=== PATIENT | female | born 1950 | race Caucasian/White ===

== ENCOUNTER → 2016-11-15 | Outpatient (CLI) | payer BC ==
--- NOTE | 2016-11-17 09:04 | XR ---
EXAM TYPE: LUMBAR SPINE X RAY SERIES COMPARISON: NONE HISTORY: Sciatica TECHNIQUE: 4 views are submitted. FINDINGS: Alignment is anatomic. The pedicles are intact. The transverse processes are intact. There is no s pondylolysis or spondylolisthesis. Diffuse osteopenia noted. Facet arthropathy L5-S1. Hypertrophic c hanges are seen. Moderate multilevel degenerative disc disease. IMPRESSION: 1. Multilevel moderate degenerative disc disease.
== END | disposition home or self-care (01) ==
LOC: RADXRYALE 14:56
PROVIDERS: ATTEND Internal Medicine
DX: M51.36 Other intervertebral disc degeneration, lumbar region (principal)
CPT/HCPCS: 72110

== ENCOUNTER → 2017-02-24 | Outpatient (CLI) | payer BC ==
--- NOTE | 2017-02-25 07:43 | ECHOF ---
Referral Reason:R06.02 SOB MEASUREMENTS -------- HEIGHT: 160.0 cm WEIGHT: 81.6 kg BP: 143/63 RVIDd: 2.8 cm (< 3.3) IVSd: 1.3 cm (0.6 - 1.1) LVIDd: 5.3 cm (3.9 - 5.3) LVPWd: 1.2 cm (0.6 - 1.1) IVSs: 1.7 cm LVIDs: 3.6 cm LVPWs: 1.6 cm LAESV Index (A-L): 17.48 ml/m Ao Diam: 3.7 cm (2.0 - 3.7) AV Cusp: 1.9 cm (1.5 - 2.6) LA Diam: 3.1 cm (2.7 - 3.8) MV EXCURSION: 20.499 mm (> 18.000) MV EF SLOPE: 117 mm/s (70 - 150) EPSS: 1.3 cm MV E Jerrod: 0.63 m/s MV DecT: 229 ms MV A Jerrod: 1.06 m/s MV E/A Ratio: 0.59 RAP: 5.00 mmHg RVSP: 26.85 mmHg FINDINGS -------- Sinus rhythm. This was a technically adequate study. There is mild concentric left ventricular hypertrophy. Overall left ventricular systolic function is normal with, an EF between 55 - 60 %. The right ventricle is normal in size and function. Normal LA size by volume 22+/-6 ml/m2. The right atrium is normal in size. Aortic valve is trileaflet and is mildly thickened. There is no evidence of aortic regurgitation. There is no evidence of aortic stenosis. Mild mitral annular calcification present. There is trace to mild mitral regurgitation. Trace tricuspid regurgitation present. There is no evidence of pulmonary hypertension. The right ventricular systolic pressure, as measured by Doppler, is 26.85mmHg. The pulmonic valve was not well visualized. The aortic root size is normal. Normal inferior vena cava with normal inspiratory collapse consistent with estimated right atrial pressure of 5 mmHg. The pericardium is normal. There is no pericardial effusion. CONCLUSIONS -------- 1. Sinus rhythm. 2. The right ventricular systolic pressure, as measured by Doppler, is 26.85mmHg. 3. The pulmonic valve was not well visualized. 4. The aortic root size is normal. 5. There is no pericardial effusion. 6. There is mild concentric left ventricular hypertrophy. 7. Overall left ventricular systolic function is normal with, an EF between 55 - 60 %. 8. Normal LA size by volume 22+/-6 ml/m2. 9. Aortic valve is trileaflet and is mildly thickened. 10. Mild mitral annular calcification present. 11. There is trace to mild mitral regurgitation. 12. Trace tricuspid regurgitation present. 13. There is no evidence of pulmonary hypertension. [employer]: Elliot Robetrson RDCS
== END | disposition home or self-care (01) ==
LOC: RADNMMAIN 15:37
PROVIDERS: ATTEND Internal Medicine
DX: I08.1 Rheumatic disorders of both mitral and tricuspid valves (principal)
CPT/HCPCS: 93306

== ENCOUNTER → 2017-04-24 | Outpatient (CLI) | payer BC ==
--- NOTE | 2017-04-25 08:14 | MM ---
Reason for exam: screening (asymptomatic). History: Patient is postmenopausal. Physical Findings: A clinical breast exam by your physician is recommended on an annual basis and results should be correlated with mammographic findings. MG Screening Mammo w CAD Bilateral CC and MLO view(s) were taken. No prior studies available for comparison. There are scattered fibroglandular densities. There is no discrete abnormality. ASSESSMENT: Negative, BI-RAD 1 RECOMMENDATION: Routine screening mammogram of both breasts in 1 year.
== END | disposition home or self-care (01) ==
LOC: RADMAMWWP 07:50
PROVIDERS: ATTEND Internal Medicine
DX: Z12.31 Encounter for screening mammogram for malignant neoplasm of breast (principal)

== ENCOUNTER → 2018-09-12 | Outpatient (CLI) | payer MEDICARE ==
--- NOTE | 2018-09-12 14:53 | XR ---
EXAMINATION TYPE: XR chest 2V DATE OF EXAM: 09/12/2018 COMPARISON: 07/06/2017 TECHNIQUE: PA and lateral views submitted. HISTORY: Cough FINDINGS: The lungs are clear and there is no pneumothorax, pleural effusion, or focal pneumonia. Atheroscler otic change aorta. Biapical pleural thickening. There is a small left pleural effusion and basilar co nsolidation. Mild interstitial prominence stable. Hypertrophic and degenerative change of the spine. IMPRESSION: 1. Small left pleural effusion stable. No interstitial edema or pneumothorax.
== END | disposition home or self-care (01) ==
LOC: RADXRYALE 13:17
PROVIDERS: ATTEND Internal Medicine
DX: J90 Pleural effusion, not elsewhere classified (principal)
CPT/HCPCS: 71046

== ENCOUNTER → 2018-10-25 | Outpatient (CLI) | payer MEDICARE ==
--- NOTE | 2018-10-25 14:55 | XR ---
Left knee HISTORY: Left knee pain 2 views of the left knee Bone mineralization, joint spaces and alignment are maintained. Possible minimal suprapatellar joint effusion. IMPRESSION: No fracture or dislocation. Possible small joint effusion.
== END ==
LOC: RADXRYALE 14:25
PROVIDERS: ATTEND Internal Medicine
DX: M25.562 Pain in left knee (principal)

== ENCOUNTER → 2019-01-16 | Outpatient (CLI) | payer MEDICARE, OTHER ==
--- NOTE | 2019-01-16 11:22 | MM ---
Reason for exam: screening (asymptomatic). Last mammogram was performed 1 year and 9 months ago. History: Patient is postmenopausal. Took hormonal contraceptives for 2 years. Physical Findings: A clinical breast exam by your physician is recommended on an annual basis and results should be correlated with mammographic findings. MG 3D Screening Mammo W/Cad Bilateral CC and MLO view(s) were taken. Prior study comparison: April 24, 2017, bilateral MG screening mammo w CAD. There are scattered fibroglandular densities. Right lateral asymmetric density on CC does not persist on 3D. No significant changes when compared with prior studies. ASSESSMENT: Negative, BI-RAD 1 RECOMMENDATION: Routine screening mammogram of both breasts in 1 year.
== END | disposition home or self-care (01) ==
LOC: RADMAMWWP 06:58
PROVIDERS: ATTEND Internal Medicine
DX: Z12.31 Encounter for screening mammogram for malignant neoplasm of breast (principal)
CPT/HCPCS: 77063; 77067

== ENCOUNTER → 2019-04-02 | Outpatient (CLI) | payer MEDICARE, OTHER ==
[2019-04-02 06:38] LABS: African American GFR (CKD) >90 (>60 ml/min/1.73 sqM); Blood Urea Nitrogen 12 mg/dL (7-17)
--- NOTE | 2019-04-02 09:22 | CT ---
EXAMINATION TYPE: CT chest w con DATE OF EXAM: 04/02/2019 COMPARISON: 07/22/2016 HISTORY: thoracic aortic aneurysm CT DLP: 355 mGycm. Automated Exposure Control for Dose Reduction was Utilized. TECHNIQUE: CT scan of the thorax is performed following with IV Contrast, patient injected with 100 mL of Isovue 300. FINDINGS: LUNGS: Minimal biapical pleural parenchymal scarring is again seen. New reticular nodular opacity in the right middle lobe is marked on series 4 image 37 and 38. This is also seen on image 42. There is no pleural effusion or pneumothorax seen. The tracheobronchial tree is patent. MEDIASTINUM: The ascending thoracic aorta is again prominent in size measuring 3.8 cm, however does n ot meet criteria for aneurysm. The aortic root is also nondilated measuring 3.7 cm. Descending thorac ic aorta is within normal limits measuring 2.3 cm. There is no evidence of aortic dissection. Mild ca lcific atheromatous plaquing is noted. Main pulmonary arteries within normal limits size. There are n o greater than 1 cm hilar or mediastinal lymph nodes. No pericardial effusion is seen. Few punctat e coronary artery calcifications are vaguely seen. OTHER: Mild degree hepatic steatosis is partially visualized. This finding limits evaluation for hepa tic masses. The spleen is enlarged measuring 14.7 cm in longitudinal dimension. 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 IMPRESSION: 1. Very mild ectasia of the ascending thoracic aorta with no interval growth aortic dissection. 2. New multinodular foraminal lobe opacity could be infectious or inflammatory and follow-up CT is re commended in 3 months to ensure resolution. Neoplastic etiology is considered less likely. 3. Incidentally noted splenomegaly and partial visualization of hepatic steatosis.
== END | disposition home or self-care (01) ==
LOC: RADCTMAIN 06:13
PROVIDERS: ATTEND Internal Medicine
DX: R91.8 Other nonspecific abnormal finding of lung field (principal); I71.2 Thoracic aortic aneurysm, without rupture
CPT/HCPCS: 82565; 84520; 71260; 36415; Q9967